=== PATIENT | male | born 1965 | race Caucasian/White ===

== ENCOUNTER 2023-01-29 14:57 | Inpatient (IN) | payer MEDICAID ==
[~2023-01-29] VITALS: Ht 167.6 cm; Wt 63.5 kg
[2023-01-29 15:24] VITALS: BP 169/77; PULSE 71; RESP 18; TEMP 97.1; O2SAT 100
[2023-01-29] MEDS ORDERED: KETOROLAC 30 MG/ML VIAL IM ONE (16:10)
[2023-01-29 16:34] LABS: BASOPHILS # (AUTO) 0.1 K/uL (0.00-0.22); BASOPHILS % (AUTO) 0.9 % (0.0-2.0); EOSINOPHILS # (AUTO) 0.1 K/uL (0-0.4); HEMATOCRIT 31.3 % (36-52); HEMOGLOBIN 10.2 g/dL (12.0-18.0); LYMPHOCYTES # (AUTO) 1.1 K/uL (2.0-11.5); LYMPHOCYTES % (AUTO) 13.3 % (20.5-51.1); MEAN CORPUSCULAR HEMOGLOBIN 29 pg (27-31); MEAN CORPUSCULAR HGB CONC 33 g/dL (33-37); MEAN CORPUSCULAR VOLUME 89.4 fL (80-94); MONOCYTES # (AUTO) 0.5 K/uL (0.8-1.0); MONOCYTES % (AUTO) 5.3 % (1.7-9.3); NEUTROPHILS # (AUTO) 6.8 K/uL (1.8-7.7); NEUTROPHILS % (AUTO) 79.5 % (42.2-75.2); PLATELET COUNT (AUTO) 286 K/uL (140-450); RED CELL DISTRIBUTION WIDTH 14.7 % (11.6-13.7); WHITE BLOOD COUNT (AUTO) 8.6 K/uL (4.8-10.8)
[2023-01-29 16:56] LABS: ALANINE AMINOTRANSFERASE 12 U/L (12-78); ALBUMIN 3.2 g/dL (3.4-5.0); ALKALINE PHOSPHATASE 76 U/L (50-136); ANION GAP 16.5 (8-16); ASPARTATE AMINOTRANSFERASE 8 U/L (15-37); CALCIUM 8.2 mg/dL (8.5-10.1); CARBON DIOXIDE 19.5 mmol/L (21-32); CHLORIDE 107 mmol/L (98-107); GFR ARICAN-AMERICAN 13 mL/min (>90); GFR NON ARICAN-AMERICAN 11 mL/min (>90); GLUCOSE 247 mg/dL (74-106); SODIUM SERUM 137 mmol/L (136-145); TOTAL BILIRUBIN 0.4 mg/dL (0.0-1.0); TOTAL PROTEIN, SERUM 6.5 g/dL (6.4-8.2)
[2023-01-29 17:05] LABS: CREATININE 5.8 mg/dL (0.6-1.3); UREA NITROGEN, BLOOD 75 mg/dL (7-18)
[2023-01-29] MEDS ORDERED: KETOROLAC 30 MG/ML VIAL ONE (17:42)
[2023-01-29] MEDS ORDERED: DEXTROSE 50% 50 ML SYR IVP ONE ×2 (18:05→19:09)
[2023-01-29] MEDS ORDERED: INSULIN REGULAR, HUMAN 100 UNIT/ML VIAL IVP ONE (18:05)
[2023-01-29] MEDS ORDERED: ASPIRIN 81 MG TAB.CHEW PO ONE (18:05)
[2023-01-29] MEDS ORDERED: HYDROcodone/APAP 5/325 MG 1 TAB TAB PO PRN (23:25)
[2023-01-29] MEDS ORDERED: MAG SULF 2000 MG/WATER PREMIX 50 ML IV PRN (23:25)
[2023-01-29] MEDS ORDERED: ACETAMINOPHEN 325 MG TAB PO PRN (23:25)
[2023-01-29] MEDS ORDERED: PRED1TAB2 PO (23:51)
[2023-01-29] MEDS ORDERED: NOVR SUBQ (23:51)
[2023-01-29] MEDS ORDERED: ASPI-1749 PO (23:51)
[2023-01-30 01:25] VITALS: BP 156/77; PULSE 66; RESP 18; TEMP 97.4; O2SAT 100; O2SAT 99
[2023-01-30 02:00] VITALS: PULSE 66; RESP 18; O2SAT 100
[2023-01-30 04:00] VITALS: BP 154/78; PULSE 72; PULSE 92; RESP 18; TEMP 97.8; O2SAT 100
[2023-01-30 08:00] VITALS: BP 158/81; PULSE 73; PULSE 77; RESP 17; TEMP 97.4; O2SAT 100; O2SAT 98
[2023-01-30 08:43] LABS: BASOPHILS # (AUTO) 0.1 K/uL (0.00-0.22); BASOPHILS % (AUTO) 1.1 % (0.0-2.0); EOSINOPHILS # (AUTO) 0.4 K/uL (0-0.4); EOSINOPHILS % (AUTO) 3.8 % (0.0-4.0); HEMATOCRIT 30.9 % (36-52); HEMOGLOBIN 10.2 g/dL (12.0-18.0); LYMPHOCYTES # (AUTO) 1.9 K/uL (2.0-11.5); LYMPHOCYTES % (AUTO) 19.7 % (20.5-51.1); MEAN CORPUSCULAR HEMOGLOBIN 29 pg (27-31); MEAN CORPUSCULAR HGB CONC 33 g/dL (33-37); MEAN CORPUSCULAR VOLUME 88.3 fL (80-94); MONOCYTES % (AUTO) 9.7 % (1.7-9.3); NEUTROPHILS # (AUTO) 6.5 K/uL (1.8-7.7); NEUTROPHILS % (AUTO) 65.7 % (42.2-75.2); PLATELET COUNT (AUTO) 276 K/uL (140-450); WHITE BLOOD COUNT (AUTO) 9.8 K/uL (4.8-10.8)
[2023-01-30 08:58] LABS: ANION GAP 16.7 (8-16); CALCIUM 8.2 mg/dL (8.5-10.1); POTASSIUM 4.7 mmol/L (3.5-5.1)
[2023-01-30] MEDS ORDERED: ASPIRIN 81 MG TAB.CHEW PO SCH (09:00)
[2023-01-30] MEDS ORDERED: ATORVASTATIN 20 MG TAB PO SCH (09:00)
[2023-01-30 09:01] LABS: CREATININE 5.8 mg/dL (0.6-1.3)
[2023-01-30 09:02] LABS: MAGNESIUM 1.2 mg/dL (1.8-2.4); PHOSPHORUS 3.9 mg/dL (2.5-4.9)
[2023-01-30 17:40] VITALS: BP 149/76; PULSE 72; RESP 17; TEMP 97.8
== END 2023-01-30 18:30 | disposition home or self-care (01) | DRG 425 ==
LOC: MED 14:57 → MTU 23:29
PROVIDERS: ADMIT Hospitalist; ATTEND Hospitalist
DX: E87.5 Hyperkalemia (principal); I21.A1 Myocardial infarction type 2; E44.0 Moderate protein-calorie malnutrition; E83.51 Hypocalcemia; I10 Essential (primary) hypertension; E11.9 Type 2 diabetes mellitus without complications; Z79.82 Long term (current) use of aspirin; Z79.899 Other long term (current) drug therapy; Z68.22 Body mass index [BMI] 22.0-22.9, adult
CPT/HCPCS: 36415; 71045; 76770; 80048; 80053; 83735; 84100; 84484; 85025; 87081; 93005; 93976; 96374; 96375; 99291; 99292; J1644; J1815; J1885; Q0092

== ENCOUNTER 2023-02-14 10:05 | Emergency (ER) | payer MEDICAID ==
[~2023-02-14] VITALS: Ht 165.1 cm; Wt 69.9 kg
[~2023-02-14 10:05] MED LIST: ASPI-1749 PO; NOVR SUBQ; PRED1TAB2 PO
[2023-02-14 10:18] VITALS: BP 184/92; PULSE 82; RESP 18; TEMP 97.9; O2SAT 99
[2023-02-14] MEDS ORDERED: KETOROLAC 30 MG/ML VIAL IM ONE (12:15)
[2023-02-14] MEDS ORDERED: ACET-8905 PO (12:41)
[2023-02-14 12:59] VITALS: BP 184/92; PULSE 82; RESP 18; TEMP 97.9; O2SAT 99
== END 2023-02-14 13:00 | disposition home or self-care (01) ==
LOC: MED 10:05
DX: M54.10 Radiculopathy, site unspecified (principal); E11.9 Type 2 diabetes mellitus without complications; I10 Essential (primary) hypertension; Z79.4 Long term (current) use of insulin; Z79.899 Other long term (current) drug therapy; Z79.82 Long term (current) use of aspirin
CPT/HCPCS: 99283; J1885; 99282

== ENCOUNTER 2023-12-09 16:42 | Emergency (ER) | payer OTHER, MEDICAID ==
[~2023-12-09] VITALS: Ht 167.6 cm; Wt 65.3 kg
[~2023-12-09 16:42] MED LIST changes: +ACET-8905 PO
[2023-12-09 17:04] VITALS: BP 97/55; PULSE 82; RESP 16; TEMP 97.8; O2SAT 96
--- NOTE | 2023-12-09 18:05 | NUR ---
CALLED PT IN LOBBY AND OUTSIDE, NO ANSWER.
--- NOTE | 2023-12-09 19:30 | NUR ---
PATIENT LEFT WITHOUT BEING SEEN BY PETE SMITH. NO FURTHER CARE PROVIDED FOR PATIENT.
[2023-12-10] MEDS ORDERED: ACET500T99 PO (09:28)
[2023-12-10] MEDS ORDERED: CEPH-588 PO (09:28)
== END 2023-12-09 18:00 | disposition left against medical advice (07) ==
LOC: MED 16:42
DX: S30.860A Insect bite (nonvenomous) of lower back and pelvis, initial encounter (principal); Z53.21 Procedure and treatment not carried out due to patient leaving prior to being seen by health care provider; W57.XXXA Bitten or stung by nonvenomous insect and other nonvenomous arthropods, initial encounter; Y92.89 Other specified places as the place of occurrence of the external cause; Y93.89 Activity, other specified; Y99.8 Other external cause status

== ENCOUNTER 2023-12-10 08:22 | Emergency (ER) | payer OTHER, MEDICAID ==
[~2023-12-10] VITALS: Ht 167.6 cm; Wt 65.5 kg
[2023-12-10 08:41] VITALS: BP 128/70; PULSE 89; RESP 17; TEMP 98.4; O2SAT 96
[2023-12-10] MEDS ORDERED: ACET500T99 PO (09:28)
[2023-12-10] MEDS ORDERED: CEPH-588 PO (09:28)
[2023-12-10] MEDS ORDERED: cefTRIAXone 500 MG VIAL ONE (09:45)
[2023-12-10] MEDS ORDERED: LIDOCAINE MPF 1% 5 ML ONE (09:46)
[2023-12-10] MEDS: ACETAMINOPHEN EXTRA STRENGTH 500 MG TAB PO ONE (09:51)
[2023-12-10] MEDS: cefTRIAXone 500 MG in LIDOCAINE MPF 1% 1 ML IM ONE (09:53)
[2023-12-10 10:08] VITALS: BP 128/70; PULSE 89; RESP 17; TEMP 98.4; O2SAT 96
== END 2023-12-10 10:08 | disposition home or self-care (01) ==
LOC: MED 08:22
DX: L02.31 Cutaneous abscess of buttock (principal); E11.9 Type 2 diabetes mellitus without complications; I10 Essential (primary) hypertension; Z79.1 Long term (current) use of non-steroidal anti-inflammatories (NSAID); Z79.4 Long term (current) use of insulin; Z79.82 Long term (current) use of aspirin; Z79.899 Other long term (current) drug therapy
CPT/HCPCS: 96372; 99283; J0696; J2001